=== PATIENT | male | born 2000 ===

== ENCOUNTER 2024-05-18 15:12 | Emergency (ER) | payer OTHER ==
[~2024-05-18] VITALS: Ht 170.2 cm; Wt 63.6 kg
[2024-05-18 15:22] VITALS: TEMP 98.3
[2024-05-18 16:02] LABS: COVID AG,FIA SOURCE NASAL SWAB
[2024-05-18 16:14] LABS: RAPID GROUP A STREP POSITIVE (NEGATIVE)
[2024-05-18 16:25] LABS: INFLUENZA TYPE A NEGATIVE FOR TYPE A (NEGATIVE); INFLUENZA TYPE B NEGATIVE FOR TYPE B (NEGATIVE)
[2024-05-18 16:26] LABS: SARS-COV2 (COVID) ANTIGEN,FIA Negative (Negative)
[2024-05-18] MEDS ORDERED: IBUP-1554 PO (16:47)
[2024-05-18] MEDS ORDERED: ACET-2080 PO (16:47)
[2024-05-18] MEDS: LIDOCAINE 2% VISCOUS 15 ML SOLUTION UDCUP PO ONE (16:57)
[2024-05-18] MEDS: PENICILLIN G BENZATHINE LA 1,200,000 UNITS/2 ML SYRINGE IM ONE (16:57)
[2024-05-18] MEDS: ACETAMINOPHEN/CODEINE 300-30 MG TABLET PO ONE (16:57)
[2024-05-18] MEDS: DiphenhydrAMINE HCL 25 MG CAPSULE PO ONE (16:57)
[2024-05-18 17:25] VITALS: BP 145/80; PULSE 105; RESP 18; O2SAT 99
== END 2024-05-18 17:42 | disposition home or self-care (01) ==
LOC: EMS 15:12
DX: J02.0 Streptococcal pharyngitis (principal); Z20.822 Contact with and (suspected) exposure to COVID-19
CPT/HCPCS: 99284; 87426; 87430; 87804; 96372; J0561